=== PATIENT | male | born 1990 | race Caucasian/White ===

== ENCOUNTER 2017-07-20 21:02 | Emergency (ER) | payer BC ==
[2017-07-20 21:21] VITALS: BP 137/63
[2017-07-20] MEDS ORDERED: Ketorolac 30 MG/ML SDV IVPUSH ONE (21:27)
[2017-07-20] MEDS ORDERED: Ondansetron 4 MG/2 ML SDV IVPUSH ONE (21:27)
[2017-07-20] MEDS ORDERED: Sodium Chloride 0.9% 1,000 ML IV ONE (21:27)
--- NOTE | 2017-07-20 21:28 | EDM.PDOC ---
ED HPI GENERAL MEDICAL PROBLEM - General Chief Complaint: Abdominal Pain Stated Complaint: STOMACH PAIN Time Seen by Provider: 07/20/17 21:28 Source of Information: Reports: Patient - History of Present Illness INITIAL COMMENTS - FREE TEXT/NARRATIVE: HISTORY AND PHYSICAL: History of present illness: [Patient developed acute onset right-sided abdominal flank pain radiating to the right testicle is some mild nausea and loose stools noted] Review of systems: As per history of present illness and below otherwise all systems reviewed and negative. Past medical history: As per history of present illness and as reviewed below otherwise noncontributory. Surgical history: As per history of present illness and as reviewed below otherwise noncontributory. Social history: No reported history of drug or alcohol abuse. Family history: As per history of present illness and as reviewed below otherwise noncontributory. Physical exam: HEENT: Atraumatic, normocephalic, pupils reactive, negative for conjunctival pallor or scleral icterus, mucous membranes moist, throat clear, neck supple, nontender, trachea midline. Lungs: Clear to auscultation, breath sounds equal bilaterally, chest nontender. Heart: S1S2, regular, negative for clicks, rubs, or JVD. Abdomen: Soft, nondistended, right-sided tenderness on deep palpation with guarding no rebound tenderness Negative for masses or hepatosplenomegaly. Negative for costovertebral tenderness. Pelvis: Stable nontender. Genitourinary: Deferred. Rectal: Deferred. Extremities: Atraumatic, negative for cords or calf pain. Neurovascular unremarkable. Neuro: Awake, alert, oriented. Cranial nerves II through XII unremarkable. Cerebellum unremarkable. Motor and sensory unremarkable throughout. Exam nonfocal. Diagnostics: [cDC CMP lipase UA CT abdomen pelvis with contrastAnd without contrast ] Therapeutics: [Normal saline 1 L Zofran 8 mg IV Toradol 30 mg IV ]Filter and pathology equipment Return stone to primary care urology Toradol Zofran Impression Abdominal pain 3 mm ureteral stone Definitive disposition and diagnosis as appropriate pending reevaluation and review of above. - Related Data Allergies Allergy/AdvReac Type Severity Reaction Status Date / Time No Known Allergies Allergy Verified 07/20/17 21:19 Home Meds: Home Meds . [No Known Home Meds] 02/18/15 [History] Past Medical History - Past Health History Medical/Surgical History: Denies Medical/Surgical History - Past Surgical History Other Musculoskeletal Surgeries/Procedures:: left elbow Social & Family History - Alcohol Use Days Per Week of Alcohol Use: 3 Number of Drinks Per Day: 3 Total Drinks Per Week: 9 - Recreational Drug Use Recreational Drug Use: No ED ROS GENERAL - Review of Systems Review Of Systems: ROS reveals no pertinent complaints other than HPI. ED EXAM, GENERAL - Physical Exam Exam: See Below Course - Vital Signs Last Recorded V/S: Last Vital Signs Temp 96.4 F 07/20/17 21:20 Pulse 58 L 07/20/17 21:20 Resp 20 07/20/17 21:20 BP 137/63 07/20/17 21:20 Pulse Ox 98 07/20/17 21:20 - Orders/Labs/Meds Orders: Active Orders 24 hr Category Date Time Status Abdomen Pelvis w Cont [CT] Stat Exams 07/20/17 21:27 Stop Req Abdomen Pelvis w wo Cont [CT] Stat Exams 07/20/17 21:32 Taken CULTURE URINE [RM] Stat Lab 07/20/17 21:36 Received UA W/MICROSCOPIC [URIN] Stat Lab 07/20/17 21:30 Ordered Labs: Laboratory Tests 07/20/17 07/20/17 07/20/17 Range/Units 21:20 21:20 21:30 WBC 8.71 (4.0-11.0) K/uL RBC 4.98 (4.50-5.90) M/uL Hgb 14.8 (13.0-17.0) g/dL Hct 44.3 (38.0-50.0) % MCV 89.0 (80.0-98.0) fL MCH 29.7 (27.0-32.0) pg MCHC 33.4 (31.0-37.0) g/dL RDW Std Deviation 44.1 (28.0-62.0) fl RDW Coeff of Sergey 14 (11.0-15.0) % Plt Count 212 (150-400) K/uL MPV 9.20 (7.40-12.00) fL Neut % (Auto) 48.7 (48.0-80.0) % Lymph % (Auto) 34.6 (16.0-40.0) % [place] % (Auto) 7.8 (0.0-15.0) % Eos % (Auto) 8.6 H (0.0-7.0) % Baso % (Auto) 0.3 (0.0-1.5) % Neut # (Auto) 4.2 (1.4-5.7) K/uL Lymph # (Auto) 3.0 H (0.6-2.4) K/uL [place] # (Auto) 0.7 (0.0-0.8) K/uL Eos # (Auto) 0.8 H (0.0-0.7) K/uL Baso # (Auto) 0.0 (0.0-0.1) K/uL Nucleated RBC % 0.0 /100WBC Nucleated RBCs # 0 K/uL Sodium 136 (136-148) mmol/L Potassium 3.7 (3.5-5.1) mmol/L Chloride 101 (98-107) mmol/L Carbon Dioxide 28.8 (21.0-32.0) mmol/L BUN 15 (7.0-18.0) mg/dL Creatinine 1.2 (0.8-1.3) mg/dL Est Cr Clr Drug Dosing 100.59 mL/min Estimated GFR (MDRD) > 60.0 ml/min Glucose 128 H (74-106) mg/dL Calcium 8.8 (8.5-10.1) mg/dL Total Bilirubin 0.3 (0.2-1.0) mg/dL AST 33 (15-37) IU/L ALT 45 (14-63) IU/L Alkaline Phosphatase 87 (46-116) U/L Total Protein 7.8 (6.4-8.2) g/dL Albumin 4.1 (3.4-5.0) g/dL Globulin 3.7 H (2.0-3.5) g/dL Albumin/Globulin Ratio 1.1 L (1.3-2.8) Lipase 104 (73-393) U/L Urine Color YELLOW Urine Appearance CLEAR Urine pH 5.5 (5.0-8.0) Ur Specific [place] >= 1.030 (1.001-1.035) Urine Protein NEGATIVE (NEGATIVE) mg/dL Urine Glucose (UA) NEGATIVE (NEGATIVE) mg/dL Urine Ketones NEGATIVE (NEGATIVE) mg/dL Urine Occult Blood LARGE H (NEGATIVE) Urine Nitrite NEGATIVE (NEGATIVE) Urine Bilirubin NEGATIVE (NEGATIVE) Urine Urobilinogen 0.2 (<2.0) EU/dL Ur Leukocyte Esterase NEGATIVE (NEGATIVE) Urine RBC TOO NUMBEROUS TO CT (0-2/HPF) Urine WBC 0-1 (0-5/HPF) Ur Epithelial Cells RARE (NONE-FEW) Urine Bacteria FEW (NEGATIVE) Urine Mucus LIGHT (NONE-MOD) Meds: Medications Discontinued Medications Generic Name Dose Route Start Last Admin Trade Name Freq PRN Reason Stop Dose Admin Sodium Chloride 1,000 mls @ 999 mls/hr 07/20/17 21:27 07/20/17 21:47 Normal Saline IV 07/20/17 22:27 999 mls/hr STAT ONE Administration Iopamidol 200 ml 07/20/17 22:27 07/20/17 22:28 Isovue Multipack-370 (76%) IVPUSH 07/20/17 22:28 100 ml ONETIME STA Administration Ketorolac Tromethamine 30 mg 07/20/17 21:27 07/20/17 21:48 Toradol IVPUSH 07/20/17 21:28 30 mg ONETIME ONE Administration Methylprednisolone Sodium Succinate 125 mg 07/20/17 22:57 07/21/17 00:05 Solu-Medrol IVPUSH 07/20/17 22:58 125 mg ONETIME ONE Administration Ondansetron HCl 8 mg 07/20/17 21:27 07/20/17 21:48 Zofran IVPUSH 07/20/17 21:28 8 mg ONETIME ONE Administration Tamsulosin HCl 0.8 mg 07/21/17 00:04 07/21/17 00:05 Flomax PO 07/21/17 00:05 0.8 mg ONETIME ONE Administration Departure - Departure Time of Disposition: 00:28 Disposition: Home, Self-Care 01 Condition: Good Clinical Impression: Ureteral stone - Discharge Information Referrals: Peter Juarez MD [Primary Care Provider] - Forms: ED Department Discharge Additional Instructions: Medication as prescribed Return if symptoms persist or worsen, intractable pain, vomiting or fever would prompt your return to emergency room Filter stone collection equipment provided Return stone to primary care or urology [facility] [address] [place] [address] [facility] [address], [address] [place] [address] The following information is given to patients seen in the emergency department who are being discharged to home. This information is to outline your options for follow-up care. We provide all patients seen in our emergency department with a follow-up referral. The need for follow-up, as well as the timing and circumstances, are variable depending upon the specifics of your emergency department visit. If you don't have a primary care physician on staff, we will provide you with a referral. We always advise you to contact your personal physician following an emergency department visit to inform them of the circumstance of the visit and for follow-up with them and/or the need for any referrals to a consulting specialist. The emergency department will also refer you to a specialist when appropriate. This referral assures that you have the opportunity for follow-up care with a specialist. All of these measure are taken in an effort to provide you with optimal care, which includes your follow-up. Under all circumstances we always encourage you to contact your private physician who remains a resource for coordinating your care. When calling for follow-up care, please make the office aware that this follow-up is from your recent emergency room visit. If for any reason you are refused follow-up, please contact the [facility] emergency department at and asked to speak to the emergency department charge nurse. - My Orders Last 24 Hours: My Active Orders 07/20/17 21:27 Abdomen Pelvis w Cont [CT] Stat 07/20/17 21:30 UA W/MICROSCOPIC [URIN] Stat 07/20/17 21:32 Abdomen Pelvis w wo Cont [CT] Stat 07/20/17 21:36 CULTURE URINE [RM] Stat - Assessment/Plan Last 24 Hours: My Active Orders 07/20/17 21:27 Abdomen Pelvis w Cont [CT] Stat 07/20/17 21:30 UA W/MICROSCOPIC [URIN] Stat 07/20/17 21:32 Abdomen Pelvis w wo Cont [CT] Stat 07/20/17 21:36 CULTURE URINE [RM] Stat
[2017-07-20 21:52] LABS: CHLORIDE,CL 101 mmol/L (98-107); SODIUM,NA 136 mmol/L (136-148)
[2017-07-20] MEDS ORDERED: Iopamidol 755 MG/ML 200 ML Multipack Bottle IVPUSH STA (22:27)
[2017-07-20] MEDS ORDERED: methylPREDNISolone Sodium Succinate 125 MG/2 ML SDV IVPUSH ONE (22:57)
[2017-07-21] MEDS ORDERED: Tamsulosin 0.4 MG Cap.ER ONE (00:01)
[2017-07-21] MEDS ORDERED: Tamsulosin 0.4 MG Cap.ER PO ONE ×2 (00:04→22:58)
--- NOTE | 2017-07-21 13:01 | CT ---
EXAM DATE: 07/20/17 PATIENT'S AGE: 27 Patient: ENRIQUE MONTEJO Facility: [place], [place] Site . Site : 1990 Study: CT Abdomen/Pelvis W/ and W/O Cont [id number]/16/2018 10:30:57 PM Ordering Physician: Aidan Lyons Final Report: INDICATION: Right lower quadrant pain for 2hr, Nausea and fever TECHNIQUE: CT Abdomen and pelvis with i.v. contrast. Coronal and sagittal reformats were obtained. CONTRAST: 100 mL Isovue 370 COMPARISON: None FINDINGS: Lower chest: Unremarkable. Liver: Unremarkable. Spleen: Unremarkable. Pancreas: Unremarkable. Gallbladder: Unremarkable. Kidney: There is a 3 mm stone present in the distal right ureter causing mild right ureterectasis and right renal pelviectasis. Mild delayed enhancement of the right renal parenchyma is noted. A 2 mm stone is seen in the lower pole of the right kidney and lower pole of the left kidney. There is a 1 mm stone in the left upper pole. Adrenal: Unremarkable. Bowel: Small sliding type esophageal hiatal hernia (type I) is present. The appendix is normal in appearance and size. Vascular: Unremarkable. Lymph: Unremarkable. Peritoneum: Unremarkable. No pneumoperitoneum is seen. No significant ascites is noted. Pelvis: Unremarkable. Soft tissue: Unremarkable. Bone: Unremarkable for age. IMPRESSION: 1. There is a 3 mm stone present in the distal right ureter causing mild right ureterectasis and right renal pelviectasis. Mild delayed enhancement of the right renal parenchyma is noted. This is consistent with renal obstruction. Dictated by Ron Ellington MD @ 07/20/2017 10:43:36 PM Please note that all CT scans at this facility use dose modulation, iterative reconstruction, and/or weight-based dosing when appropriate to reduce radiation dose to as low as reasonably achievable. Dictated by: Ron Ellington MD @ 07/20/2017 22:43:52 (Electronic Signature) Report Signed by Proxy. LUCHO
== END 2017-07-21 00:40 | disposition home or self-care (01) ==
LOC: MW.ED 21:02
DX: N20.2 Calculus of kidney with calculus of ureter (principal)
CPT/HCPCS: 36415; 74178; 80053; 81001; 83690; 85025; 87086; 96361; 96374; 96375; 99284; A9270; J1885; J2405; J2930; J7040; Q9967; 99283